=== PATIENT | female | born 1980 | race Caucasian/White ===

== ENCOUNTER 2016-10-13 09:17 | Day surgery (SDC) | payer BC ==
[~2016-10-13 09:17] MED LIST: RINGER'S SOLUTION,LACTATED 1,000 ML IV PRN; ceFAZolin SODIUM 2 GM in DEXTROSE 5 % IN WATER 50 ML IV PRN
[2016-10-13] MEDS ORDERED: LIDOCAINE HCL 50 ML VIAL IJ ONE (10:40)
[2016-10-13] MEDS ORDERED: BUPIVACAINE HCL 50 ML VIAL IJ ONE (10:40)
[2016-10-13] MEDS ORDERED: DEXAMETHASONE SOD PHOSPHATE 4 MG/ML VIAL IJ ONE (11:19)
[2016-10-13 13:07] VITALS: BP 106/74
== END 2016-10-13 09:18 | disposition home or self-care (01) ==
LOC: AMB 09:17
PROVIDERS: ATTEND Student in an Organized Health Care Education/Training Program
PROC: 0QBP0ZZ Excision of Left Metatarsal, Open Approach (ICD-10-PCS; principal; 2016-10-13 11:45)
DX: M89.372 Hypertrophy of bone, left ankle and foot (principal); K21.9 Gastro-esophageal reflux disease without esophagitis; F41.1 Generalized anxiety disorder; F17.210 Nicotine dependence, cigarettes, uncomplicated; Z68.24 Body mass index [BMI] 24.0-24.9, adult

== ENCOUNTER 2016-11-01 11:31 | Emergency (ER) | payer BC ==
[2016-11-01 11:41] VITALS: BP 138/85
--- NOTE | 2016-11-01 12:03 | ERNOTE ---
Medical Problem HPI - General Chief Complaint: General Assessment Time Seen by Provider: 11/01/16 11:42 Source: patient Exam Limitations: no limitations - Immun/Allergies/Home Medications Immunizations: IMMUNIZATION HX Immunizations Up to Date Yes History of Influenza Vaccine Yes Hx Pneumococcal Vaccination No Allergies/Adverse Reactions: Allergies adhesive Adverse Reaction (Mild, Verified 11/01/16 11:41) RASH aspirin Adverse Reaction (Mild, Verified 11/01/16 11:41) UPSET STOMACH Home Medications: HOME MEDICATIONS HYDROcodone/ACETAMINOPHEN [[place] 5-325] 1 each PO Q4H PRN #60 tablet 10/13/16 [ Last Taken Unknown] Levothyroxine Sodium [Synthroid] 25 mcg PO DAILY 10/13/16 [Last Taken Unknown] oxyCODONE HCL/ACETAMINOPHEN [Oxycodone-Acetaminophen 5-325] 1 each PO Q4H PRN # 60 tablet 10/13/16 [Last Taken Unknown] Enoxaparin Sodium [Lovenox] 80 mg SC BID 11/01/16 [Last Taken Unknown] LORazepam [Ativan] 0.5 mg PO BID PRN #5 tablet 11/01/16 [Last Taken Unknown] Ondansetron [Zofran Odt] 4 mg PO Q6H PRN #20 tab 11/01/16 [Last Taken Unknown] Warfarin Sodium 7.5 mg PO DAILY 11/01/16 [Last Taken Unknown] - History of Present History Narrative: This is a 36-year-old female with significant past medical history for left foot surgery and subsequent DVT of the left lower extremity. He is on Lovenox and Coumadin and she was on her last Lovenox shot and she ran out today and experienced sweaty palms sweating tearfulness and anxiety thinking that she was out of her Lovenox. She has also had some nausea off and on in the past week since she has started no Lovenox. He denies any fevers chills shortness of breath chest pain vomiting diarrhea fevers or any other symptoms. Review of Systems - Review of Systems Constitutional: Present: no symptoms reported EYE: Present: no symptoms reported ENT: Present: no symptoms reported Respiratory: Present: no symptoms reported Cardiology: Present: no symptoms reported Gastrointestinal/Abdominal: Present: nausea. Absent: vomiting, diarrhea Musculoskeletal: Present: no symptoms reported, muscle stiffness Psych: Present: anxiety - patient states that she feels so anxious that she is no longer able to give herself her Lovenox shots however she does have a sister at home that can help her with her Lovenox shots. - Patient's Past Medical History Patient History - Medical: Anxiety, GERD, Hypothyroidism Patient History - Cardiac/Respiratory: Pneumonia Patient History - Cancer: No Hx of Cancer Patient History - Surgical Procedures: Appendectomy, , D & C, Tubal Ligation Patient History - Other: None LMP (females 10-50): 3 weeks - Family History Father Family History - Medical: No pertinent hx Family History - Cardiac/Respiratory: No pertinent hx Family History - Cancer: Other Mother Family History - Medical: , No pertinent hx Family History - Cardiac/Respiratory: No pertinent hx Family History - Cancer: Lung - Social History Living Situations: alone Abuse History: No History of abuse Psych History: Hx of Anxiety Smoking Status: Current every day smoker Have you smoked in the past 12 months: Yes Do you dip or chew tobacco: No Alcohol Use: occasionally Drug Use: other - Immunizations Immunizations Up to Date: Yes Hx Pneumococcal Vaccination: No History of Influenza Vaccine: Yes Physical Exam - Physical Exam General Appearance: Present: wd/wn, alert, no apparent distress - patient does appear slightly anxious and tearful in the room with this examiner examines her. However when I speak to the patient I'm able to calm her down. Head Exam: Present: normal inspection, no evidence of injury Eye Exam: Normal inspection: bilateral, PERRL: bilateral, EOMI: bilateral Ears, Nose, Throat: Present: normal ENT inspection, normal pharynx Neck: Present: normal inspection, nontender, supple, full range of motion Respiratory: Present: no respiratory distress, normal breath sounds, no accessory muscle use, chest nontender, lungs clear Cardiovascular/Chest: Present: regular rate, rhythm, no murmur, normal peripheral pulses Extremity Exam: Present: normal inspection - bandages applied to the left foot to the bandage was not unwrapped., non-tender, normal range of motion, no edema ED Progress - Vital Signs Patient's Vital Signs:: I have reviewed the patient's vital signs. Vital Signs: Vital Signs 11/01/16 11:36 Temperature 37.3 C Pulse Rate 83 Respiratory 16 Rate Blood Pressure 138/85 O2 Sat by Pulse 98 Oximetry - Progress/Reassessment Chief Complaint: General Assessment Plan - Plan Plan: Administrative staff helped to this examiner get more Lovenox for this patient through the pharmacist. It appears that this patient's symptomatology of anxiety have to do with the fact that she thought she was going to be out of her Lovenox. She is significantly more reassured however I will give her Ativan 0.5 mg only 5 tablets when necessary anxiety. Her nausea secondary to Lovenox injections will be treated with Zofran 4 mg ODT. She is to follow up with her primary care physician this patient is stable and appropriate this time in this ER to be discharged. Departure - Departure Clinical Impression: Anxiety Disposition: Home self-care Condition: Good Instructions: Venous Thromboembolism, Deep Vein Thrombosis Referrals: Melissa Desai DO [Primary Care Provider] - Prescriptions: LORazepam [Ativan] 0.5 mg PO BID PRN #5 tablet PRN Reason: Anxiety Ondansetron [Zofran Odt] 4 mg PO Q6H PRN #20 tab PRN Reason: Nausea
== END 2016-11-01 12:05 | disposition home or self-care (01) ==
LOC: ER 11:31
DX: F43.0 Acute stress reaction (principal); K21.9 Gastro-esophageal reflux disease without esophagitis; E03.9 Hypothyroidism, unspecified; F17.200 Nicotine dependence, unspecified, uncomplicated

== ENCOUNTER 2017-12-15 07:00 | Observation (INO) ==
[~2017-12-15 07:00] MED LIST changes: +ENOXAPARIN SODIUM 40 MG/0.4 ML SYRG SC PRN; -RINGER'S SOLUTION,LACTATED 1,000 ML IV PRN; -ceFAZolin SODIUM 2 GM in DEXTROSE 5 % IN WATER 50 ML IV PRN; +ceFAZolin SODIUM/DEXTROSE,ISO 2 GM/50 ML BAG IV PRN
--- NOTE | 2017-12-15 07:41 | OR ---
Operative Report - Dictated Report Narrative: Date of Service: 12/15/17 Procedure: open primary umbilical hernia repair Pre-procedure diagnosis: umbilical hernia Post-procedure diagnosis: same Surgeon: Dr. Arline Crocker Anesthesia: general Indication for procedure: Arlene is a very pleasant 37-year-old female with a symptomatic umbilical hernia. She has a history of blood clots and was given Lovenox preoperatively. Description of procedure: After appropriate informed consent was obtained patient was taken to the operating room placed in the supine position. General anesthesia was achieved. The patient was prepped and draped in the usual sterile fashion. An infraumbilical incision was made. Electrocautery was used to dissect down to the fascia. The umbilical hernia defect was identified. The hernia sac was freed from the fascia. The hernia sac was reduced, a plane was made in the pre-peritoneal plane, for the mesh. Hemostasis was achieved. A large ventral X ST mesh was placed, as the defect was approximately 3cm. This was sutured in place using 0 Nurolon sutures, this closed the fascia and incorporated into the hernia mesh. The wound was again irrigated and hemostasis was achieved. A 2-0 Vicryl was used to tack the umbilicus down to the fascia. 2 simple interrupted stitches were placed. Local anesthetic was injected. A 3- 0 Vicryl was used to close the deep dermal layer. A running inverted interrupted 4-0 Monocryl suture was then used to close the skin layer. Mastisol and Steri-Strips were then applied. A 2x2 was placed in the umbilicus, and a dressing was placed. The patient tolerated procedure well with no immediate complications. Estimated blood loss: minimal Complications: none Specimens to pathology: none Disposition: The patient should not lift more than 20 pounds for the next 4 weeks. Follow-up with me in the clinic in 2 weeks, or sooner if he has any questions or concerns.
--- NOTE | 2017-12-15 08:14 | ANES ---
Anesthesia Pre Procedure Eval Vitals/Labs: Last Vital Signs Temp 36.6 C 12/15/17 07:12 Pulse 82 12/15/17 07:12 Resp 16 12/15/17 07:12 BP 116/81 12/15/17 07:12 Pulse Ox 99 12/15/17 07:12 HOME MEDICATIONS Levothyroxine Sodium [Synthroid] 25 mcg PO DAILY 10/13/16 [Last Taken Unknown] albuterol sulfate HFA 90 mcg/actuation aerosol inhaler See Rx Instructions IH Q6H PRN 10/06/17 [Last Taken Unknown] cyclobenzaprine 10 mg tablet 10 mg PO TID PRN 10/06/17 [Last Taken Unknown] esomeprazole magnesium 40 mg capsule,delayed release 40 mg PO DAILY 10/06/17 [Last Taken 12/14/17 40mg] lisinopril 10 mg tablet 10 mg PO DAILY 10/06/17 [Last Taken 12/15/17 10] polyethylene glycol 3350 17 gram/dose oral powder 17 g PO DAILY PRN g 10/06/17 [Last Taken Unknown] vitamin B12 500 mcg-folic acid 400 mcg tablet 1 tab PO DAILY 10/06/17 [Last Taken Unknown] celecoxib 200 mg capsule 200 mg PO DAILY 11/16/17 [Last Taken Unknown] pantoprazole 20 mg tablet,delayed release 20 mg PO DAILY 11/16/17 [Last Taken 12/14/17 20mg] Allergies/Adverse Reactions: Allergies Allergy/AdvReac Type Severity Reaction Status Date / Time adhesive AdvReac Mild from paper Verified 12/15/17 07:25 tape, and tape on sterile drapes- RASH aspirin AdvReac Mild UPSET Verified 12/15/17 07:25 STOMACH - Planned Procedure Planned Procedure: Hernia Repair Umbilical Medication List Reviewed:: Yes Allergies Verified: Yes Medical History (Last Reviewed 12/15/17 @ 08:14 by Valentino Borges CRNA) Tobacco abuse Onset Date: Unknown 12 ppd, 2 cigarettes this AM Anxiety Onset Date: ~11/30/14 GERD (gastroesophageal reflux disease) Onset Date: ~11/30/14 Low back pain Onset Date: ~11/30/14 Lumbar herniated disc Onset Date: ~2014 L5-S1 Psoriasis Onset Date: Unknown Acute pyelonephritis without lesion of renal medullary necrosis Onset Date: 10/10/11 DVT (deep venous thrombosis) Onset Date: Unknown left lower leg Pneumonia Onset Date: ~10/10/11 history of as a child till 13 yrs old, recurrent then Shoulder pain, right Onset Date: Unknown Surgical History (Last Reviewed 12/15/17 @ 08:14 by Valentino Borges CRNA) Ectopic , tubal 2005 History of appendectomy Onset Date: ~1999 History of back surgery Onset Date: 11/13/14 herniated disc repair History of section Onset Date: ~2010 2006, 2010 History of dilation and curettage Onset Date: ~2003 History of esophagogastroduodenoscopy (EGD) Onset Date: 10/13/17 Lizzette-mild gastritis History of foot surgery Onset Date: 10/13/16 Dr Velasquez-metatarsal head resection 2nd and 3rd left foot. History of tubal ligation Onset Date: ~2005 Family History (Last Reviewed 12/15/17 @ 08:14 by Valentino Borges CRNA) Father Cancer testicular, skin A-fib Mother , age 45-lung cancer Cancer lung Sister Fibromyalgia Sister Alive and well 3 sisters Uncle Cancer 2 uncles-lung ca Uncle Cancer throat ca Aunt Cancer 1 w/lung ca, 1 w/leukemia - Family Anesthesia History Family History:: no untoward family reactions to anesthesia, no familial bleeding tendencies, no family history of clotting disorders, no family history of premature - Airway/Neck/Teeth Within Normal Limits:: Yes Teeth Condition: Intact Mallampatti Score: 1 Thyromental (T-M) distance: > 6 cm Mandibulo Hyoid distance: > 3 cm - Respiratory Respiratory: lungs clear Smoking Status: Current every day smoker Discussed smoking cessation including day of surgery: Yes Sleep Apnea currently treated: No Sleep Apnea by current assessment: No Discussed Risks/Treatment of PAULINA: No - Cardiovascular Tolerates Activity: Good Heart Sounds: S1 & S2, Regular - Anesthesia Assessment and Plan ASA Class: PS, II Anesthesia Type Plan: General LMA
[2017-12-15] MEDS: RINGER'S SOLUTION,LACTATED 1,000 ML IV PRN ×3 (08:51→14:20)
[2017-12-15] MEDS ORDERED: BUPIVACAINE HCL/EPINEPHRINE 50 ML VIAL IJ ONE (09:16)
[2017-12-15] MEDS ORDERED: HYDROmorphone HCL 2 MG TABLET PO PRN (09:37)
[2017-12-15] MEDS ORDERED: ONDANSETRON HCL/PF 2 MG/ML VIAL IV PRN (09:37)
--- NOTE | 2017-12-15 09:51 | ANES ---
Post Anesthesia Discharge - Transfer of Care Transfer of Care handoff given to nurse: Yes - Discharge from PACU Discharge from PACU when meets criteria: Yes - Discharge to ASU Discharge to ASU-no complications/pt stable: Yes
--- NOTE | 2017-12-15 10:50 | ANES ---
Post Anesthesia Assessment - Vital Signs Vitals: Last Vital Signs Temp 37.1 C 12/15/17 10:10 Pulse 87 12/15/17 10:40 Resp 18 12/15/17 10:40 BP 116/78 12/15/17 10:40 Pulse Ox 98 12/15/17 10:40 Airway Patency: Normal - Mental Status Level Of Consciousness: Awake - N/V Assessment Nausea/Vomiting Presence: None Dehydration:: No
[2017-12-15] MEDS: MORPHINE SULFATE 2 MG/ML DISP.SYRIN IV PRN ×3 (10:58→13:30)
[2017-12-15] MEDS ORDERED: oxyCODONE HCL/ACETAMINOPHEN 1 TAB TABLET PO ONE (11:28)
[2017-12-15] MEDS ORDERED: HYDROmorphone HCL 1 MG/ML DISP.SYRIN IV PRN (13:54)
[2017-12-15] MEDS ORDERED: HYDROcodone/ACETAMINOPHEN 1 EACH TABLET PO PRN (13:54)
[2017-12-15] MEDS: ONDANSETRON HCL/PF 2 MG/ML VIAL IV PRN ×2 (17:12→21:25)
[2017-12-16] MEDS ORDERED: HYDROcodone/ACETAMINOPHEN 1 EACH TABLET PO PRN (02:00)
[2017-12-16] MEDS: ONDANSETRON HCL/PF 2 MG/ML VIAL IV PRN (03:31)
[2017-12-16] MEDS ORDERED: ENOXAPARIN SODIUM 40 MG/0.4 ML SYRG SC SCH (07:00)
--- NOTE | 2017-12-16 08:34 | HP ---
Chief Complaint - Chief Complaint Date of Service: 12/15/17 Time of Service: 13:00 Chief Complaint: post operative pain History of Present Illness: Arlene is a very pleasant 37-year-old female who underwent open umbilical hernia repair. She has postoperative pain which cannot be controlled on an outpatient basis. She will need to be admitted for pain control. Her vital signs are stable, there are no signs of an intraoperative complication. She does have a history of postoperative DVT. She has no signs of leg swelling, no shortness of breath, no tachycardia, or other signs of thrombolic events. She will be admitted for observation. Medical History (Last Updated 12/15/17 @ 14:17 by Katharina Spencer RN) Arthritis Hypertension Hypothyroid Wears glasses Tobacco abuse Onset Date: Unknown 02/17 ppd, 2 cigarettes this AM Anxiety Onset Date: ~11/30/14 GERD (gastroesophageal reflux disease) Onset Date: ~11/30/14 Low back pain Onset Date: ~11/30/14 Lumbar herniated disc Onset Date: ~2014 L5-S1 Psoriasis Onset Date: Unknown Acute pyelonephritis without lesion of renal medullary necrosis Onset Date: 10/10/11 DVT (deep venous thrombosis) Onset Date: Unknown left lower leg Pneumonia Onset Date: ~10/10/11 history of as a child till 13 yrs old, recurrent then Shoulder pain, right Onset Date: Unknown Surgical History: Surgical History (Last Reviewed 12/15/17 @ 08:14 by Valentino Borges CRNA) Ectopic , tubal 2005 History of appendectomy Onset Date: ~1999 History of back surgery Onset Date: 11/13/14 herniated disc repair History of section Onset Date: ~2010 2006, 2010 History of dilation and curettage Onset Date: ~2003 History of esophagogastroduodenoscopy (EGD) Onset Date: 10/13/17 Lizzette-mild gastritis History of foot surgery Onset Date: 10/13/16 Dr Velasquez-metatarsal head resection 2nd and 3rd left foot. 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 Smoking Status Current every day smoker Have you smoked in the past 12 Yes months Abuse History No History of abuse Psych History Hx of Anxiety (Last Updated 11/17/17 @ 09:10 by Arline Crocker DO) No Social History Section defined Review Of Systems (GEN) - Review of Systems Generalized/Overall Review: Present: Fatigue EENTM: Present: No Symptoms Reported Respiratory: Present: No Symptoms Reported Cardiac: Present: No Symptoms Reported Abdominal: Present: Abdominal Pain Genitourinary: Present: No Symptoms Reported Musculoskeletal: Present: Muscle Pain - From surgery Neurological: Present: No Symptoms Reported Skin: Present: No Symptoms Reported Endocrine: Present: No Symptoms Reported Immunizations: IMMUNIZATION HX Immunizations Up to Date Yes History of Influenza Vaccine Yes Hx Pneumococcal Vaccination No Allergies/Adverse Reactions: Allergies Allergy/AdvReac Type Severity Reaction Status Date / Time adhesive AdvReac Mild from paper Verified 12/15/17 07:25 tape, and tape on sterile drapes- RASH aspirin AdvReac Mild UPSET Verified 12/15/17 07:25 STOMACH Home Medications: HOME MEDICATIONS Levothyroxine Sodium [Synthroid] 25 mcg PO DAILY 10/13/16 [Last Taken Unknown] cyclobenzaprine 10 mg tablet 10 mg PO TID PRN 10/06/17 [Last Taken 12/08/17] esomeprazole magnesium 40 mg capsule,delayed release 40 mg PO DAILY 10/06/17 [Last Taken 12/14/17 40mg] lisinopril 10 mg tablet 10 mg PO DAILY 10/06/17 [Last Taken 12/15/17 10] vitamin B12 500 mcg-folic acid 400 mcg tablet 1 tab PO DAILY 10/06/17 [Last Taken 12/12/17] celecoxib 200 mg capsule 200 mg PO DAILY 11/16/17 [Last Taken 12/14/17] pantoprazole 20 mg tablet,delayed release 20 mg PO DAILY 11/16/17 [Last Taken 12/14/17 20mg] HYDROcodone/ACETAMINOPHEN [[place] 5-325] 2 each PO Q6H PRN #30 tablet 12/16/17 [Last Taken Unknown] Exam - Exam Vital Signs: Vital Signs - Last Taken Temp 36.3 C 12/16/17 03:00 Pulse 59 L 10/31/18 03:00 Resp 18 12/16/17 03:00 BP 99/58 12/16/17 03:00 Pulse Ox 99 12/16/17 03:00 Constitutional: Present: Alert, Oriented x3, Cooperative, Moderate distress ENT Exam: Present: hearing grossly normal Eye Exam: bilateral eye: normal inspection Neck: Present: supple Breasts: Present: Exam deferred Respiratory: Present: chest non-tender, lungs clear, normal breath sounds Cardiovascular/Chest: Present: normal peripheral pulses, regular rate, rhythm, no edema, no JVD Abdomen: Present: tender - Appropriate tenderness for postsurgical /Rectal: Present: Exam deferred Extremity: Present: normal range of motion, non-tender, no calf tenderness Skin Exam: Present: normal color Neurologic: Present: processing analyst II-XII nml as tested, other - Appears slightly anxious Appearance: Present: other Eye contact: Present: cooperative, good eye contact Thoughts: Present: normal thought pattern Assessment/Plan - Assessment/Plan (1) Postoperative pain Problem: Acute Plan - Plan Plan: Patient will be admitted to [facility] for observation for pain control. We will reassess in the morning to see how her pain control is, and anticipate discharge in the morning. We'll continue to monitor. She has a history of thrombolic events after surgery, at this time there are no signs of a thrombolic events, but we will continue to monitor.
--- NOTE | 2017-12-16 08:43 | DS ---
(1) Post-operative pain Problem: Acute Description of Stay: Arlene is a very pleasant 37-year-old female who underwent an open umbilical hernia repair yesterday. Postoperatively she had trouble with diaphoresis and pain control. Her vital signs remained stable. She had no signs of postoperative hemorrhage. She has a history of postoperative DVT, she received Lovenox prior to her procedure, she had SCDs on throughout her stay. She had no signs of a thrombolic event. This morning she is feeling much better, she has tolerated breakfast, she feels like she is ready for discharge. Procedures Performed: see notes below List Procedures: Open umbilical hernia repair Results and Findings: No postoperative labs are done Discharge Location: Home Disposition: Home self-care Condition: Good Discharge Activity: Other - to not lift greater than 20 pounds for 4 weeks Discharge Diet: General/regular food Problem Oriented Discharge Instructions to Patient/Family: Umbilical Herniorrhaphy, Care After Additional Patient Instructions (free text): Please review your discharge instructions. Please call Dr. Ariana Crocker's office with any questions or concerns. [phone] You will have a follow-up appointment with Dr. Ariana Crocker at her [place] office on Saturday December 30, 2017 at 10:00 a.m. Do not lift >20lb for 4 weeks. Prescriptions (Any new or edited meds): HYDROcodone/ACETAMINOPHEN [[place] 5-325] 2 each PO Q6H PRN #30 tablet PRN Reason: Pain Complete Home Medications List: Complete Home Medication List: Levothyroxine Sodium [Synthroid] 25 mcg PO DAILY 10/13/16 cyclobenzaprine 10 mg tablet 10 mg PO TID PRN 10/06/17 esomeprazole magnesium 40 mg capsule,delayed release 40 mg PO DAILY 10/06/17 lisinopril 10 mg tablet 10 mg PO DAILY 10/06/17 vitamin B12 500 mcg-folic acid 400 mcg tablet 1 tab PO DAILY 10/06/17 celecoxib 200 mg capsule 200 mg PO DAILY 11/16/17 pantoprazole 20 mg tablet,delayed release 20 mg PO DAILY 11/16/17 HYDROcodone/ACETAMINOPHEN [[place] 5-325] 2 each PO Q6H PRN #30 tablet 12/16/17
[2017-12-16 09:04] VITALS: BP 104/65
== END 2017-12-16 09:14 | disposition home or self-care (01) ==
LOC: MS 07:00 → SUR 07:00
PROVIDERS: ADMIT Surgery; ATTEND Surgery
DX: E03.9 Hypothyroidism, unspecified; Z86.718 Personal history of other venous thrombosis and embolism; F17.210 Nicotine dependence, cigarettes, uncomplicated; K42.9 Umbilical hernia without obstruction or gangrene; G89.18 Other acute postprocedural pain; I10 Essential (primary) hypertension
CPT/HCPCS: 96361; 96372; 96374; 96375; 96376; C1781; G0378; J2405